=== PATIENT | female | born 1970 | race Caucasian/White ===

== ENCOUNTER 2023-05-17 00:54 | Day surgery (SDC) | payer BC, SELFPAY ==
[2023-05-13 11:09] VITALS: BMI 30.9
--- NOTE | 2023-05-13 11:20 | PC.NURSE ---
Report to the Outpatient Waiting Room, entrance under the green pavilion located off [facility], at time _10:00__ on date ____05/17/23___. Planned Procedure Time: __1200 . Time changes happen often and if your time is changed the preop area will call you the afternoon before. - You and your visitor will be asked to self-screen and do not enter if you have any COVID symptoms. - A mask is optional within the hospital at this time. Patients may have clear liquids (water, carbonated beverages, clear teas, apple juice) until 3 hours prior to surgery with a maximum of 20 ounces. - No food from midnight until time of surgery - Infants may have breast milk until 4 hours before surgery, formula 6 hours prior to surgery. - Children will be allowed to drink immediately following surgery. If applicable, please bring a bottle or sippy cup to assist with drinking. Juice, water, soda, and popsicles are readily available. For infants on formula, please bring formula the day of surgery. Pacifiers are allowed. Take the following medications with a SIP of water the morning of surgery: ____Inhailers, Bupropion, Dextroamphetamine, Fluoxetine, Levothyroxine___ DO NOT STOP ANY OF YOUR OTHER PRESCRIPTION MEDICATIONS PRIOR TO SURGERY ?EXCEPT THE FOLLOWING Medications to discontinue per physician NSAIDS 7 days Date to take last dose Does not take NSAIDS Please no make-up, nail kiswahili, hairspray, perfume, deodorant, or body powder the day of surgery. No jewelry (including any body piercings) or valuables the day of surgery, leave them at home. Please take a shower or bath the night before, or the morning of, surgery with an antibacterial soap. Wear comfortable, loose fitting clothing. Children are encouraged to wear pajamas. - Jewelry must be removed prior to entering the operating room. Rings and piercings that are not removed may be cut off. - The hospital will not accept responsibility for valuables. - Please leave all valuables, including medications, at home the day of surgery. If you are going home after surgery, a licensed local company truck driver must drive you home. - NO public transportation without another adult if you receive anesthesia. - We recommend that an adult stay with you for 24 hours following discharge. - We also recommend that you do not drive, make important decision, drink alcoholic beverages, or take any drugs that were not prescribed by your health care provider for at least 24 hours after your discharge time. For Pediatric surgeries, we recommend two adults accompany the child home. Follow any additional instructions given to you from your surgeon. If you or anyone in your household have experienced Covid symptoms in the past week, please notify your surgeon or the nurse liaison at the phone number below for possible testing. Telephone instructions given to ___iLn Rosales and asked if any additional questions and then verbalized understanding. Patient advised to call surgeon office or pre surgery nurse liaison [phone] if any additional questions.
[2023-05-17 10:09] VITALS: BP 131/70; PULSE 103; RESP 18; TEMP 37.3; O2SAT 100
[2023-05-17] MEDS: LACTATED RINGERS 1,000 ML 30 ML IV CONT (10:28)
[2023-05-17] MEDS: KETOROLAC 15 MG/ML VIAL (*BKC) IV PUSH (10:32)
[2023-05-17] MEDS: ACETAMINOPHEN 500 MG TABLET 1000 MG PO (10:32)
--- NOTE | 2023-05-17 11:45 | WPDANESEPPF ---
Anes - Initial Pre Proc Eval Procedure: Operation Date: 05/17/23 12:00 Proposed Procedures p Right Carpal and Cubital Tunnel Release - Sunil Pino MD Date/Time: 05/17/23 11:45 Surgeon: Sunil Pino MD Pre Op Diagnosis: Rt Wrist Carpal & Cubital Synd Patient Data Age: 53 Gender: F Height: 1.68 m Weight: 77.3 kg Last Vital Signs Temp 99.1 F 05/17/23 10:09 Pulse 103 H 05/17/23 10:09 Resp 18 05/17/23 10:09 BP 131/70 05/17/23 10:09 Pulse Ox 100 05/17/23 10:09 O2 Del Method Room Air 05/17/23 10:09 Allergies Allergy/AdvReac Type Severity Reaction Status Date / Time Penicillins Allergy Unknown Hives Verified 05/17/23 10:23 Sulfa (Sulfonamide Allergy Unknown Hives Verified 05/17/23 10:23 Antibiotics) sulfamethoxazole Allergy Unknown Hives Verified 05/17/23 10:23 [From ] trimethoprim [From ] Allergy Unknown Hives Verified 05/17/23 10:23 animal dander AdvReac Unknown Unknown Verified 05/17/23 10:23 wheat AdvReac Unknown Unknown Verified 05/17/23 10:23 Home Medications Medication Instructions Recorded Confirmed Type albuterol sulfate 2.5 mg/3 mL 2.5 mg inhalation Q6H PRN sob 04/02/23 05/13/23 History (0.083 %) solution for nebulization albuterol sulfate 90 mcg/actuation 1 inh inhalation Q4-6H PRN sob 04/02/23 05/13/23 History breath activated powder inhaler budesonide 160 mcg-glycopyr 9 2 inh inhalation BID 04/02/23 05/13/23 History mcg-formot 4.8 mcg/actuation HFA inhaler (Breztri Aerosphere) bupropion HCl 150 mg 24 hr tablet, 150 mg PO QAM 04/02/23 05/13/23 History extended release dextroamphetamine-amphetamine ER 25 mg PO DAILY 04/02/23 05/13/23 History 25 mg 24hr capsule,extend release (Adderall XR) fexofenadine 180 mg tablet 180 mg PO DAILY 04/02/23 05/13/23 History (Jasmin Allergy) fluoxetine 20 mg capsule 20 mg PO DAILY 04/02/23 05/13/23 History montelukast 10 mg tablet 10 mg PO DAILY 04/02/23 05/13/23 History levothyroxine 50 mcg capsule 50 mcg PO DAILY 05/05/23 05/13/23 History dextroamphetamine-amphetamine ER 10 mg PO 1500 PRN focus 05/13/23 05/13/23 History 10 mg 24hr capsule,extend release (Adderall XR) furosemide 20 mg tablet (Lasix) 20 mg PO DAILY PRN swelling 05/13/23 05/13/23 History potassium chloride 10 mEq 10 meq PO DAILY PRN other 05/13/23 05/13/23 History tablet,extended release cefdinir 300 mg capsule 300 mg PO DAILY 05/17/23 05/17/23 History ciprofloxacin 0.3 %-dexamethasone 4 drp RIGHT EAR BID 05/17/23 05/17/23 History 0.1 % ear drops,suspension oxycodone-acetaminophen 5 mg-325 1 - 2 tablet PO Q4-6H PRN pain #30 05/17/23 Rx mg tablet tabs Patient hx anesthesia problems: none Family hx anesthesia problems: none Results Review: All pre-operative results and documents have been reviewed as part of the pre-operative evaluation. [facility] Surgical History Surgical History (Updated 05/05/23 @ 15:15 by Jenn Talbot MA) History of section X 5 91,94,97,1999,2002 History of cholecystectomy History of tonsillectomy Family History Family History (Updated 05/05/23 @ 15:16 by Jenn Talbot MA) Sibling Renal failure Mother Diabetes mellitus Social History Social History (Updated 05/05/23 @ 15:16 by Jenn Talbot MA) Years smoked: 0.5 Smoking status: Former smoker Alcohol intake: never Substance use: unknown Living arrangements: with family Spiritual care concerns: No Anes - Eval Final PreProcedure Day of Procedure 05/17/23 11:45 Patient weight: normal Heart: regular rate and rhythm Lungs: clear to auscultation Airway: Mallampati scale class II Neurological: alert and oriented Last oral intake: >/= 8 hours ASA classification: II Emergent: no Anesthetic plan: proceed Anesthesia type and monitoring: general LMA and standard monitoring Results Review: All pre-operative results and documents have been reviewed as part of the pre-o
--- NOTE | 2023-05-17 12:01 | WPDHPUPDATE1 ---
History and Physical Update Update Date/Time: 05/17/23 12:01 History and Physical has been reviewed, including an updated exam of the patient. There are NO changes in the patient's condition. Risks, benefits, and alternatives have been discussed and questions answered. Patient agrees to proceed with procedure.
[2023-05-17] MEDS: ceFAZolin 2 GM/D5W 50 ML 2 GM/50 ML BAG IVPB (12:06)
[2023-05-17] MEDS: BUPIVACAINE/EPINEPHRINE 0.5% 50 ML VIAL INFILTRATE (12:29)
[2023-05-17 13:23] VITALS: BP 99/56; PULSE 63; RESP 14; O2SAT 97
[2023-05-17 13:50] VITALS: BP 99/46; PULSE 64; RESP 14; O2SAT 100
--- NOTE | 2023-05-17 15:22 | P.OP_ITS ---
Procedure Note - Detailed Date of Procedure 05/17/23 Pre-op Diagnosis Right Wrist Carpal & Right elbow cubital tunnel syndrome Post-op Diagnosis Same Procedure Performed Right 1. Carpal tunnel release 2. Cubital tunnel decompression Surgeon Sunil Pino MD Director Of Customer Acquisition Mayela Guy PA-C Anesthesia General Description of Procedure Operative details. After anesthetic was administer, the hand was prepped and draped in the usual sterile fashion. The proposed incision was marked using typical anatomic landmarks. 4ML 0.5% Marcaine with epinephrine was injected along the incision line and at the distal forearm. 6 ML was injected at the elbow incision. The limb was exsanguinated and the tourniquet inflated to 250 millimeters of mercury. A longitudinal incision was taken sharply. Dissection was brought down to the transverse carpal ligament. Under direct vision the lig ament was incised sharply. The proximal release was carried out with dissection scissors. The contents of the carpal canal were protected with a [place] elevator. The transverse carpal ligament was confirmed to be widely patent. The wound was closed with 3-0 prolene suture. Attention was turned to the elbow. A longitudinal incision was created posterior to the medial epicondyle. Careful dissection was brought down to the ulnar nerve. It was identified proximally and dissected to the cubital tunnel retinaculum. Careful dissection released the cubital tunnel retinaculum. The dissection was carried out to the flexor carpi the ulnaris. The 1st motor branch was carefully identified and protected. Attention was turned proximally and the nerve was released proximal to the intermuscular septum. The arm was flexed and the nerve was assessed. The nerve was stable. The course of the nerve was very nice without evidence of compression or instability. The tourniquet was released to assure that there was no significant bleeding. Meticulous hemostasis was maintained. The subcutaneous tissues were closed with 3-0 Vicryl suture. The skin was closed with interrupted 3-0 Monocryl suture followed by running 4-0 Monocryl suture and Steri-Strips. Sterile dressing was applied with a soft splint at the wrist and a hard splint at the elbow. The patient was extubated and brought to the recovery room in stable condition. PA utilized for prep and draping, tissue retraction, skin closure, and dressing placement. Estimated Blood Loss 1 Pathology None sent Complications No immediate complications Condition Stable Disposition PACU [facility] Billing Surgery - Charge Forward: Surgery Billing
== END 2023-05-17 14:17 | disposition home or self-care (01) ==
PROVIDERS: Visit Provider Orthopaedic Surgery
PROC: (CPT 64721; principal; 2023-05-17 12:00)
DX: G56.01 Carpal tunnel syndrome, right upper limb (principal); G56.21 Lesion of ulnar nerve, right upper limb; Z79.51 Long term (current) use of inhaled steroids; Z79.891 Long term (current) use of opiate analgesic; Z87.891 Personal history of nicotine dependence; Z90.49 Acquired absence of other specified parts of digestive tract
CPT/HCPCS: 64721; 64718; A4565; A9270; J0690; J1885; J2250; J2405; J2704; J3010; J7120

== ENCOUNTER 2023-07-06 00:26 | Day surgery (SDC) | payer OTHER, SELFPAY ==
[2023-06-24 09:42] VITALS: BMI 29.5
--- NOTE | 2023-06-24 09:52 | PC.NURSE ---
Addendum entered by Maria Alejandra Cross RN 06/24/23 10:01: If patient resumes taking lasix for swelling on a regular basis she is instructed to call surgery department to have labs drawn pre surgery. Patient states she is currently out of this medication and will not be taking before surgery. Original Note: Report to the Outpatient Waiting Room, entrance under the green pavilion located off [facility], at time 11:30am on date 07-06-23. Planned Procedure Time: 1:30pm. Time changes happen often and if your time is changed the preop area will call you the afternoon before. - You and your visitor will be asked to self-screen and do not enter if you have any COVID symptoms. - A mask is optional within the hospital at this time. Patients may have clear liquids (water, carbonated beverages, clear teas, apple juice) until 3 hours prior to surgery (10:30am) with a maximum of 20 ounces. - No food from midnight until time of surgery Take the following medications with a SIP of water the morning of surgery: inhalers, fluoxetine, adderall, bupropion DO NOT STOP ANY OF YOUR OTHER PRESCRIPTION MEDICATIONS PRIOR TO SURGERY ?EXCEPT THE FOLLOWING Medications to discontinue per physician ADVIL NEEDED 7 DAYS PRIOR Please no make-up, nail honduran, hairspray, perfume, deodorant, or body powder the day of surgery. No jewelry (including any body piercings) or valuables the day of surgery, leave them at home. Please take a shower or bath the night before, or the morning of, surgery with an antibacterial soap. Wear comfortable, loose fitting clothing. - Jewelry must be removed prior to entering the operating room. Rings and piercings that are not removed may be cut off. - The hospital will not accept responsibility for valuables. - Please leave all valuables, including medications, at home the day of surgery. If you are going home after surgery, a licensed milk delivery driver must drive you home. - NO public transportation without another adult if you receive anesthesia. - We recommend that an adult stay with you for 24 hours following discharge. - We also recommend that you do not drive, make important decision, drink alcoholic beverages, or take any drugs that were not prescribed by your health care provider for at least 24 hours after your discharge time. Follow any additional instructions given to you from your surgeon. If you or anyone in your household have experienced Covid symptoms in the past week, please notify your surgeon or the nurse liaison at the phone number below for possible testing. Telephone instructions given to PATIENT and asked if any additional questions and then verbalized understanding. Patient advised to call surgeon office or pre surgery nurse liaison [phone] if any additional questions.
[2023-07-06] VITALS (10 sets, daily range): BP systolic 93–142; BP diastolic 57–73; PULSE 50–81; RESP 12–20; TEMP 36.3–36.4; O2SAT 98–100
[2023-07-06] MEDS: ACETAMINOPHEN 500 MG TABLET 1000 MG PO (11:57)
[2023-07-06] MEDS: LACTATED RINGERS 1,000 ML 30 ML IV CONT ×3 (12:40→16:35)
[2023-07-06 13:03] LABS: Anion Gap 7 mmol/L (8-16); Blood Urea Nitrogen 17 mg/dL (7-17); Calcium 8.4 mg/dL (8.4-10.2); Carbon Dioxide 26 mmol/L (22-30); Chloride 105 mmol/L (98-107); Estimated CRCL calculation 77 ml/min; Estimated Glomerular Filt Rate > 60; Glucose 88 mg/dL (65-110); Potassium 4.3 mmol/L (3.4-5.0); Sodium 138 mmol/L (137-145)
--- NOTE | 2023-07-06 13:13 | WPDANESEPPF ---
Anes - Initial Pre Proc Eval Procedure: Operation Date: 07/06/23 13:30 Proposed Procedures p Left Carpal and Cubital Tunnel Release - Sunil Pino MD Date/Time: 07/06/23 13:13 Surgeon: Sunil Pino MD Pre Op Diagnosis: left carpal and cubital tunnel syndrome Patient Data Age: 53 Gender: F Height: 1.68 m Weight: 78.7 kg Last Vital Signs Temp 36.4 C 07/06/23 12:18 Pulse 81 07/06/23 12:18 Resp 16 07/06/23 12:18 BP 142/58 H 07/06/23 12:18 Pulse Ox 100 07/06/23 12:18 O2 Del Method Room Air 07/06/23 12:18 Allergies Allergy/AdvReac Type Severity Reaction Status Date / Time Penicillins Allergy Severe Hives Verified 07/06/23 11:50 Sulfa (Sulfonamide Allergy Severe Hives Verified 07/06/23 11:50 Antibiotics) sulfamethoxazole Allergy Severe Hives Verified 07/06/23 11:50 [From ] trimethoprim [From ] Allergy Severe Hives Verified 07/06/23 11:50 animal dander AdvReac Unknown Unknown Verified 06/30/23 09:35 wheat AdvReac Unknown Unknown Verified 06/30/23 09:35 Home Medications Medication Instructions Recorded Confirmed Type albuterol sulfate 2.5 mg/3 mL 2.5 mg inhalation Q6H PRN sob 04/02/23 07/06/23 History (0.083 %) solution for nebulization albuterol sulfate 90 mcg/actuation 1 inh inhalation Q4-6H PRN sob 04/02/23 07/06/23 History breath activated powder inhaler budesonide 160 mcg-glycopyr 9 2 inh inhalation BID 04/02/23 07/06/23 History mcg-formot 4.8 mcg/actuation HFA inhaler (Breztri Aerosphere) bupropion HCl 150 mg 24 hr tablet, 150 mg PO QAM 04/02/23 07/06/23 History extended release dextroamphetamine-amphetamine ER 25 mg PO DAILY 04/02/23 07/06/23 History 25 mg 24hr capsule,extend release (Adderall XR) fexofenadine 180 mg tablet 180 mg PO DAILY 04/02/23 07/06/23 History (Jasmin Allergy) fluoxetine 20 mg capsule 20 mg PO DAILY 04/02/23 07/06/23 History montelukast 10 mg tablet 10 mg PO DAILY 04/02/23 07/06/23 History dextroamphetamine-amphetamine ER 10 mg PO 1500 PRN focus 05/13/23 07/06/23 History 10 mg 24hr capsule,extend release (Adderall XR) furosemide 20 mg tablet (Lasix) 20 mg PO DAILY PRN swelling 05/13/23 06/30/23 History potassium chloride 10 mEq 10 meq PO DAILY PRN other 05/13/23 06/30/23 History tablet,extended release levothyroxine 75 mcg capsule 75 mcg PO DAILY 06/02/23 07/06/23 History oxycodone-acetaminophen 5 mg-325 1 - 2 tablet PO Q4-6H PRN pain #30 07/06/23 Rx mg tablet tabs Laboratory Tests 07/06/23 12:45 Sodium 138 mmol/L (137-145) Potassium 4.3 mmol/L (3.4-5.0) Chloride 105 mmol/L (98-107) Carbon Dioxide 26 mmol/L (22-30) Anion Gap 7 L mmol/L (8-16) BUN 17 mg/dL (7-17) Creatinine 0.80 mg/dL (0.7-1.0) Estim Creat Clear Calc 77 ml/min Estimated GFR > 60 (59 - ) Glucose 88 mg/dL (65-110) Calcium 8.4 mg/dL (8.4-10.2) Patient hx anesthesia problems: none Family hx anesthesia problems: none Results Review: All pre-operative results and documents have been reviewed as part of the pre-operative evaluation. [facility] Surgical History Surgical History History of carpal tunnel release (~05/18/23) Right Carpal and Cubital Tunnel release History of section X 5 91,94,97,1999,2002 History of cholecystectomy History of tonsillectomy Family History Family History Sibling Renal failure Mother Diabetes mellitus Social History Social History Years smoked: 0.5 Smoking status: Former smoker Tobacco type: cigarettes Second hand tobacco smoke exposure: Yes Alcohol intake: never Substance use: never Substance use type: does not use Do You Feel Safe in your Home?: Yes Lack of Transportation: No Lack of Food: Never True
--- NOTE | 2023-07-06 13:22 | WPDHPUPDATE1 ---
History and Physical Update Update Date/Time: 07/06/23 13:22 History and Physical has been reviewed, including an updated exam of the patient. There are NO changes in the patient's condition. Risks, benefits, and alternatives have been discussed and questions answered. Patient agrees to proceed with procedure.
[2023-07-06] MEDS: KETOROLAC 15 MG/ML VIAL (*BKC) IV PUSH (13:25)
[2023-07-06] MEDS: ceFAZolin 2 GM/D5W 50 ML 2 GM/50 ML BAG IVPB (13:28)
[2023-07-06] MEDS: BUPIVACAINE/EPINEPHRINE 0.5% 30 ML VIAL INFILTRATE (13:53)
--- NOTE | 2023-07-06 16:15 | W.PM.PROC2 ---
Procedure Note - Detailed Date of Procedure 07/06/23 Pre-op Diagnosis left carpal and cubital tunnel syndrome Post-op Diagnosis Same Procedure Performed Left 1. Ulnar nerve subcutaneous transposition at the elbow 2. Carpal tunnel release Surgeon Sunil Pino MD Anesthesia General Findings The ulnar nerve was unstable and perched more than chcf across the medial epicondyle after decompression. Transposition was indicated and was performed without complications. The nerve tracked very well without evidence of kinking or impingement. Description of Procedure The patient was brought to the operating room. Preoperative antibiotics were given. A general anesthetic was administered. The arm was prepped and draped in the usual sterile fashion with a well-padded tourniquet on the arm. The limb was exsanguinated and the tourniquet inflated to 250 milliliters of mercury. Anatomic landmarks were used to identify the in the transverse carpal ligament. The incision was marked. 2 milliliters of 0.5% Marcaine was injected along the incision line. A longitudinal incision was created. Careful sharp dissection was brought down to the transverse carpal ligament. Under direct vision, the ligament was incised sharply. The carpal canal contents were carefully protected with a [place] elevator and the release was carried out proximally to the distal forearm fascia. The transverse carpal ligament was confirmed to be widely patent. The wound was irrigated and closed with interrupted horizontal Prolene 3-0 suture. Attention was turned to the elbow. A longitudinal incision was created posterior to the medial epicondyle. Careful dissection was brought down to the ulnar nerve. It was identified proximally and dissected to the cubital tunnel retinaculum. Careful dissection released the cubital tunnel retinaculum. The dissection was carried out to the flexor carpi the palmaris. The 1st motor branch was carefully identified and protected. Attention was turned proximally in the nerve was released proximal to the intermuscular septum. The arm was flexed and the nerve was assessed. At this point the nerve was found to be unstable. It was elected to proceed with a subcutaneous transposition. After adequate release was confirmed proximally and distally, the nerve was carefully moved onto the muscle. The intermuscular septum was carefully released and cauterized prior to moving the nerve. The course of the nerve was very nice without evidence of kinking. A fascial sling was created using a strip of fascia from the distal aspect of the flexor pronator group and repaired with 0 Vicryl suture. Subcutaneous repair to the medial epicondyle was also performed with the 2nd suture. This provided a nice buttress for the nerve without undue pressure. The tourniquet was released to assure that there was no significant bleeding. Meticulous hemostasis was maintained. The subcutaneous tissues were closed with 0 Vicryl suture. The skin was closed with interrupted 3-0 Monocryl suture followed by running 4-0 Monocryl suture and Steri-Strips. Sterile dressing was applied with a soft splint at the wrist and a hard splint at the elbow. The patient was extubated and brought to the recovery room in stable condition. Estimated Blood Loss 10 Drains No Pathology None sent Complications No immediate complications Condition Stable Disposition PACU [facility] Billing Surgery - Charge Forward: Surgery Billing
[2023-07-06] MEDS: fentaNYL CITRATE INJ (*CRX) 100 MCG/2 ML VIAL 25 MCG IV PUSH ×4 (16:21→16:34)
[2023-07-06] MEDS: oxyCODONE HCL (*CRX) 5 MG TAB IR PO (17:02)
== END 2023-07-06 17:40 | disposition home or self-care (01) ==
PROVIDERS: Visit Provider Orthopaedic Surgery
PROC: (CPT 64721; principal; 2023-07-06 13:30)
DX: G56.02 Carpal tunnel syndrome, left upper limb (principal); G56.22 Lesion of ulnar nerve, left upper limb
CPT/HCPCS: 64721; 64718; 36415; 80048; A9270; J0690; J1100; J1885; J2250; J2405; J2704; J3010; J7120

== ENCOUNTER 2023-08-12 13:58 | Outpatient (CLI) | payer OTHER, MEDICAID, SELFPAY ==
--- NOTE | ~2023-08-12 | MR_ITS ---
EXAMINATION: MR shoulder RT wo con DATE: 08/12/2023 14:38 INDICATION: Right shoulder pain with possible rotator cuff tear TECHNIQUE: Magnetic resonance imaging (MRI) of the right shoulder was performed without intravenous c ontrast. Sequences included axial PD-weighted FS FSE, coronal oblique PD-weighted FS FSE, coronal obl ique T2-weighted FS FSE, sagittal PD-weighted FS FSE, and sagittal T1-weighted SE. COMPARISON: Radiographs dated 07/21/2023 FINDINGS: Coracoacromial arch: The acromion undersurface is curved in morphology (type II). The coracoacromial ligament is normal. M ild acromioclavicular osteoarthritis. Rotator cuff: Moderate tendinopathy of the conjoined portion of the supraspinatus and infraspinatus tendons with mi ld tendinopathy more anterior supraspinatus and posterior infraspinatus tendons. The teres minor and subscapularis tendons are normal. Normal rotator cuff muscle bulk and signal. Biceps tendon, glenoid labrum and glenohumeral cartilage: Long head of the biceps tendon is normal. Glenoid labrum is normal. Glenohumeral cartilage is normal. Fluid: Physiologic amount of fluid in the glenohumeral joint and biceps tendon sheath. No loose osteochondr al bodies. Mild increased fluid signal in the subacromial/subdeltoid bursa consistent with mild bursi tis. Bones: Bone alignment is normal. No fracture or pathologic marrow replacing process. There is erosive change along portions of the superior and middle facets of the greater tuberosity likely related to chronic rotator cuff disease. IMPRESSION: 1. Mild to moderate supraspinatus and intraspinous tendinopathy, greatest at the conjoined portion of the tendon but without discrete tear. 2. Mild subacromial/subdeltoid bursitis. Reviewed, dictated and finalized at location A. GER FORENSIC IMPRESSION: 1. Mild to moderate supraspinatus and intraspinous tendinopathy, greatest at th e conjoined portion of the tendon but without discrete tear. 2. Mild subacromial/subdeltoid bursitis.
== END 2023-08-12 13:59 | disposition home or self-care (01) ==
PROVIDERS: Visit Provider Orthopaedic Surgery
DX: M75.101 Unspecified rotator cuff tear or rupture of right shoulder, not specified as traumatic (principal); M75.51 Bursitis of right shoulder
CPT/HCPCS: 73221

== ENCOUNTER 2023-11-29 00:29 | Day surgery (SDC) | payer OTHER, SELFPAY ==
[2023-11-23 13:07] VITALS: BMI 29.4
--- NOTE | 2023-11-23 13:08 | PC.NURSE ---
Report to the Outpatient Waiting Room, entrance under the green pavilion located off [facility], at time _1000_ on date _[id number]_. Planned Procedure Time: _1200_. Time changes happen often and if your time is changed the preop area will call you the afternoon before. - You and your visitor will be asked to self-screen and do not enter if you have any COVID symptoms. - A mask is optional within the hospital at this time. Patients may have clear liquids (water, carbonated beverages, clear teas, apple juice) until 3 hours prior to surgery with a maximum of 20 ounces. - No food from midnight until time of surgery Take the following medications with a SIP of water the morning of surgery: __Inhalers. Bupropion, Fluoxetine and levothroxine. Pain med if needed.__ DO NOT STOP ANY OF YOUR OTHER PRESCRIPTION MEDICATIONS PRIOR TO SURGERY ?EXCEPT THE FOLLOWING Medications to discontinue per physician None Date to take last dose Please no make-up, nail haitian, hairspray, perfume, deodorant, or body powder the day of surgery. No jewelry (including any body piercings) or valuables the day of surgery, leave them at home. Please take a shower or bath the night before, or the morning of, surgery with an antibacterial soap. Wear comfortable, loose fitting clothing. - Jewelry must be removed prior to entering the operating room. Rings and piercings that are not removed may be cut off. - The hospital will not accept responsibility for valuables. - Please leave all valuables, including medications, at home the day of surgery. If you are going home after surgery, a licensed package delivery driver must drive you home. - NO public transportation without another adult if you receive anesthesia. - We recommend that an adult stay with you for 24 hours following discharge. - We also recommend that you do not drive, make important decision, drink alcoholic beverages, or take any drugs that were not prescribed by your health care provider for at least 24 hours after your discharge time. Follow any additional instructions given to you from your surgeon. If you or anyone in your household have experienced Covid symptoms in the past week, please notify your surgeon or the nurse liaison at the phone number below for possible testing. Telephone instructions given to __Shelly__and asked if any additional questions and then verbalized understanding. Patient advised to call surgeon office or pre surgery nurse liaison [phone] if any additional questions.
[2023-11-29] VITALS (9 sets, daily range): BP systolic 103–133; BP diastolic 55–71; PULSE 59–66; RESP 11–18; TEMP 36.3–36.5; O2SAT 97–100
--- NOTE | 2023-11-29 08:55 | WPDHPUPDATE1 ---
History and Physical Update Update Date/Time: 11/29/23 08:55 History and Physical has been reviewed, including an updated exam of the patient. There are NO changes in the patient's condition. Risks, benefits, and alternatives have been discussed and questions answered. Patient agrees to proceed with procedure.
[2023-11-29] MEDS: ACETAMINOPHEN 500 MG TABLET 1000 MG PO (11:02)
[2023-11-29] MEDS: KETOROLAC 15 MG/ML VIAL (*BKC) IV PUSH (11:03)
[2023-11-29 11:08] LABS: Anion Gap 5 mmol/L (4-12); Blood Urea Nitrogen 17 mg/dL (7-17); Calcium 6.5 mg/dL (8.4-10.2); Carbon Dioxide 27 mmol/L (22-30); Chloride 106 mmol/L (98-107); Estimated CRCL calculation 81 ml/min; Estimated Glomerular Filt Rate > 60; Glucose 84 mg/dL (65-110); Potassium 4.2 mmol/L (3.4-5.0); Sodium 138 mmol/L (137-145)
--- NOTE | 2023-11-29 11:46 | WPDANESEPPF ---
Anes - Initial Pre Proc Eval Procedure: Operation Date: 11/29/23 12:00 Proposed Procedures p Right Shoulder Arthroscopy, Rotator Cuff Repair with Subacromial Decompression - Sunil Pino MD Date/Time: 11/29/23 11:46 Surgeon: Sunil Pino MD Pre Op Diagnosis: right shoulder partial rotator cuff tear Patient Data Age: 53 Gender: F Height: 1.68 m Weight: 87.9 kg Last Vital Signs Temp 36.3 C L 11/29/23 10:08 Pulse 65 11/29/23 10:08 Resp 18 11/29/23 10:08 BP 133/71 11/29/23 10:08 Pulse Ox 100 11/29/23 10:08 O2 Del Method Room Air 11/29/23 10:08 Allergies Allergy/AdvReac Type Severity Reaction Status Date / Time Penicillins Allergy Severe Hives Verified 11/29/23 10:08 Sulfa (Sulfonamide Allergy Severe Hives Verified 11/29/23 10:08 Antibiotics) sulfamethoxazole Allergy Severe Hives Verified 11/29/23 10:08 [From Febra] trimethoprim [From ] Allergy Severe Hives Verified 11/29/23 10:08 animal dander AdvReac Unknown Unknown Verified 11/29/23 10:08 wheat AdvReac Unknown Unknown Verified 11/29/23 10:08 Home Medications Medication Instructions Recorded Confirmed Type albuterol sulfate 2.5 mg/3 mL 2.5 mg inhalation Q6H PRN sob 04/02/23 11/23/23 History (0.083 %) solution for nebulization albuterol sulfate 90 mcg/actuation 1 inh inhalation Q4-6H PRN sob 04/02/23 11/23/23 History breath activated powder inhaler budesonide 160 mcg-glycopyr 9 2 inh inhalation BID 04/02/23 11/23/23 History mcg-formot 4.8 mcg/actuation HFA inhaler (Breztri Aerosphere) bupropion HCl 150 mg 24 hr tablet, 150 mg PO QAM 04/02/23 11/23/23 History extended release fexofenadine 180 mg tablet 180 mg PO DAILY 04/02/23 11/23/23 History (Jasmin Allergy) fluoxetine 20 mg capsule 20 mg PO DAILY 04/02/23 11/23/23 History montelukast 10 mg tablet 10 mg PO DAILY 04/02/23 11/23/23 History furosemide 20 mg tablet (Lasix) 20 mg PO DAILY PRN swelling 05/13/23 11/23/23 History potassium chloride 10 mEq 10 meq PO DAILY PRN other 05/13/23 11/23/23 History tablet,extended release levothyroxine 75 mcg capsule 75 mcg PO DAILY 06/02/23 11/29/23 History hydrocodone 5 mg-acetaminophen 325 1 tablet PO TID PRN Pain 11/23/23 11/23/23 History mg tablet Laboratory Tests 11/29/23 10:50 Sodium 138 mmol/L (137-145) Potassium 4.2 mmol/L (3.4-5.0) Chloride 106 mmol/L (98-107) Carbon Dioxide 27 mmol/L (22-30) Anion Gap 5 mmol/L (4-12) BUN 17 mg/dL (7-17) Creatinine 0.80 mg/dL (0.7-1.0) Estim Creat Clear Calc 81 ml/min Estimated GFR > 60 (59 - ) Glucose 84 mg/dL (65-110) Calcium 6.5 L mg/dL (8.4-10.2) Patient hx anesthesia problems: none Family hx anesthesia problems: none Results Review: All pre-operative results and documents have been reviewed as part of the pre-operative evaluation. [facility] Surgical History Surgical History History of carpal tunnel release (~05/18/23) Right Carpal and Cubital Tunnel release History of carpal tunnel release (~07/06/23) (Left) & Ulnar Nerve Transposition History of section X 5 91,94,97,1999,2002 History of cholecystectomy History of tonsillectomy Family History Family History Sibling Renal failure Mother Diabetes mellitus Social History Social History Years smoked: 0.5 Smoking status: Never smoker Tobacco type: cigarettes Second hand tobacco smoke exposure: Yes Alcohol intake: never Substance use: never Substance use type: does not use Do You Feel Safe in your Home?: Yes Lack of Transportation: No Lack of Food: Never True Current Housing: I Have Housing Concerned About Future Housing: No Difficulty Paying Gas/Electric Bills: No Difficulty Paying for Meds: YE
[2023-11-29] MEDS: ceFAZolin 2 GM/D5W 50 ML 2 GM/50 ML BAG IVPB (12:03)
[2023-11-29] MEDS: BUPIVACAINE/EPINEPHRINE 0.5% 10 ML VIAL 30 ML INFILTRATE (12:30)
[2023-11-29] MEDS: LACTATED RINGERS 1,000 ML 30 ML IV CONT (13:35)
[2023-11-29] MEDS: fentaNYL CITRATE INJ (*CRX) 100 MCG/2 ML VIAL 25 MCG IV PUSH ×5 (14:05→15:17)
--- NOTE | 2023-11-29 14:59 | P.OP_ITS ---
Procedure Note - Detailed Date of Procedure 11/29/23 Pre-op Diagnosis Right shoulder partial rotator cuff tear Post-op Diagnosis Same Procedure Performed Right shoulder 1. Arthroscopic rotator cuff repair with collagen implant. 2. Subacromial decompression Surgeon Sunil Pino MD [employer] Mayela Guy PA-C Anesthesia General Findings High-grade articular tearing the supraspinatus. Approximately 50%. The bursal tissues were very healthy. No other pathology intra-articular. Moderate type 2 acromion treated with acromioplasty. Cuff repair with Regeneten collagen implant, 5 KEVIN soft tissue anchors, and 2 peek bone anchors. Description of Procedure Preoperative antibiotics were given. And interscalene block was administered. The patient was bought brought to the operating room. After general anesthetic was administered. The patient was carefully positioned in the beach chair position. The head and neck were carefully positioned. The non operative extremity was also carefully positioned. The shoulder was prepped and draped in the usual sterile fashion. Examination under anesthesia was performed. Standard posterior and anterior arthroscopic portals were established. Inflow was obtained with a saline pump with epinephrine. The glenohumeral joint was carefully inspected. The articular cartilage was healthy. The biceps was normal. The subscapularis intact. Normal labrum. Mid to high-grade articular side tear close to 50% assessed. This was marked with a PDS suture. An additional gabbie was created using the spinal needle to identify the biceps location. Attention was turned to the subacromial space. A complete bursectomy was performed. An accessory lateral portal was created. A modest acromioplasty was performed. The bursal side rotator cuff was intact. The tissue was of good quality. The Regeneten graft was inserted. It was deployed and then secured along the medial row with multiple KEVIN soft tissue anchors. The boat joiner was removed and lateral fixation was performed with 2 peek bone anchors. The arthroscopic instruments were removed. The portals were closed with interrupted 4-0 Monocryl suture followed by Steri-Strips. Sterile dressing was applied with gauze. A sling and swath was applied. There were no complications. Physician patient observation assistant, Mayela Rubio PA-C, required for surgery; including patient positioning, draping, arthroscopic camera operation, maintaining instrument position, collagen implant positioning and anchor insertion, wound closure, and dressing and sling placement. Implants Regeneten collagen implant. Five KEVIN soft tissue anchors. Two peek bone anchors. Estimated Blood Loss 20 Drains No Packing No Pathology None sent Complications No immediate complications Condition Stable Disposition PACU [facility] Billing Surgery - Charge Forward: Surgery Billing
[2023-11-29] MEDS: oxyCODONE HCL (*CRX) 5 MG TAB IR PO (15:17)
== END 2023-11-29 16:04 | disposition home or self-care (01) ==
PROVIDERS: Anesthesiology; Visit Provider Orthopaedic Surgery
PROC: (CPT 29805; principal; 2023-11-29 12:00)
DX: M75.111 Incomplete rotator cuff tear or rupture of right shoulder, not specified as traumatic (principal); M75.81 Other shoulder lesions, right shoulder; Z79.51 Long term (current) use of inhaled steroids; Z87.891 Personal history of nicotine dependence
CPT/HCPCS: 29826; 29827; 36415; 80048; A4565; A9270; C1713; J0171; J0690; J1100; J1170; J1596; J1885; J1940; J2250; J2405; J2704; J2710; J3010; J7120